=== PATIENT | female | born 1945 | race Caucasian/White ===

== ENCOUNTER 2018-05-28 00:57 | Day surgery (SDC) | payer MEDICARE, OTHER ==
[~2018-05-28] VITALS: Ht 162.6 cm; Wt 90.0 kg
[~2018-05-28 00:57] MED LIST: ALBU90OI6 INH; ASPI81CH PO; ASPI81EC PO; CELE200 PO; Caffeine200 MG PO; ESTROGEN CREAM; HYDCHL25 PO; HYDMOR2 PO; Isosorbide Mono60 MG PO; LEVSOD100 PO; LEVSOD125 PO; LOSA25 PO; MELO7.5 PO; METO25 PO; MONT10T PO; NEBI5 PO; OMEP20ER PO; Prempro 0.3 MG/1 TAB PO; RANI150 PO; SIMV10 PO; SUCR1 PO; TAMS.4ER PO; VENL75ER PO
== END 2018-05-28 11:15 | disposition home or self-care (01) ==
LOC: MHTC 00:57
DX: R07.9 Chest pain, unspecified (principal); R06.02 Shortness of breath; E66.9 Obesity, unspecified; E78.00 Pure hypercholesterolemia, unspecified; E78.5 Hyperlipidemia, unspecified; I10 Essential (primary) hypertension; E03.9 Hypothyroidism, unspecified; K21.9 Gastro-esophageal reflux disease without esophagitis; Z79.82 Long term (current) use of aspirin; Z79.899 Other long term (current) drug therapy; Z82.49 Family history of ischemic heart disease and other diseases of the circulatory system; Z68.34 Body mass index [BMI] 34.0-34.9, adult
CPT/HCPCS: 93458; 99152; 99153; C1769; C1894; J1644; J2250; J3010; J7030; Q9967

== ENCOUNTER 2019-01-28 09:23 | Day surgery (SDC) | payer MEDICARE, OTHER ==
[~2019-01-28] VITALS: Ht 162.6 cm; Wt 88.0 kg
[2019-01-28] MEDS ORDERED: Budeprion Xl300 MG PO (10:44)
[2019-01-28] MEDS ORDERED: FURO40 PO (10:45)
[2019-01-28] MEDS ORDERED: ESTR2 PO (10:45)
[2019-01-28] MEDS ORDERED: MELO7.5 PO (10:45)
[2019-01-28] MEDS ORDERED: BUSP15 PO (10:45)
--- NOTE | 2019-01-28 11:12 | NUR ---
Ambulatory in Day Surgery History, Chart, Medications and Allergies reviewed before start of procedure.Lungs clear T/O to Auscultation. Patient confirms NPO status and agrees with scheduled surgery. Pre-Op teaching done. Pt verbalizes understanding. Patient States Post-Procedure ride home has been arranged.
--- NOTE | 2019-01-28 11:13 | NUR ---
PT CALM AND PLEASANT. CALL LIGHT GIVEN TO PT. RIDE WILL BE CALLED AFTER PROCEDURE.
--- NOTE | 2019-01-28 11:16 | NUR ---
PT LEFT HEARING AID REMOVED PLACED IN LABELED CUP WITH BELONGINGS
--- NOTE | 2019-01-28 11:19 | NUR ---
01/28/19 1119 [place] Phillip Bite Block Placed3-LEAD EKG REVIEWED WITH PHYSICIAN PRIOR TO START OF PROCEDURE.Patient to ENDO 1History, Chart, Medications and Allergies reviewed before start of procedure.MONITOR INTACT WITH CONTINUOUS PULSE OXIMETRY AND INTERMITTENT BP.O2 VIA N/C INTACT THROUGHOUT SEDATION/PROCEDURE.HURRICAINE SPRAY TO OROPHARYX.
--- NOTE | 2019-01-28 12:30 | NUR ---
Patient up to Ambulate independently. Gait steady. Discharge instructions reviewed with patient. Patient verbalizes understanding. Copy given to patient to take home. Patient States Post-Procedure ride home has been arranged. Discharged via wheelchair to private car for ride home.
== END 2019-01-28 22:44 | disposition home or self-care (01) ==
LOC: ORSCMMR 09:23 → ORD 10:30 → ORSCMMR 22:44
PROVIDERS: Internal Medicine Gastroenterology
PROC: 0DB98ZX Excision of Duodenum, Via Natural or Artificial Opening Endoscopic, Diagnostic (ICD-10-PCS; principal; 2019-01-28 10:30)
PROC: 0DB68ZX Excision of Stomach, Via Natural or Artificial Opening Endoscopic, Diagnostic (ICD-10-PCS; principal; 2019-01-28 10:30)
PROC: 0DB48ZX Excision of Esophagogastric Junction, Via Natural or Artificial Opening Endoscopic, Diagnostic (ICD-10-PCS; principal; 2019-01-28 10:30)
DX: K22.70 Barrett's esophagus without dysplasia (principal); R93.89 Abnormal findings on diagnostic imaging of other specified body structures; K21.0 Gastro-esophageal reflux disease with esophagitis; R10.13 Epigastric pain; I10 Essential (primary) hypertension; E03.9 Hypothyroidism, unspecified; G47.30 Sleep apnea, unspecified; F41.8 Other specified anxiety disorders; K44.9 Diaphragmatic hernia without obstruction or gangrene; Z79.899 Other long term (current) drug therapy
CPT/HCPCS: 88305; 88342; J2250; J3010; J7120

== ENCOUNTER 2019-05-04 06:44 | Day surgery (SDC) | payer MEDICARE, OTHER ==
[~2019-05-04] VITALS: Ht 162.6 cm; Wt 87.9 kg
[~2019-05-04 06:44] MED LIST changes: +BUSP15 PO; +Budeprion Xl300 MG PO; +ESOMEPRAZOLE MA40 MG PO; +ESTR2 PO; +EUTHYROX112 MCG PO; +Estradiol1 MG PO; +FURO40 PO; +K-Dur20 MEQ PO; +Ranitidine HCl300 MG PO; +TRAM50 PO
== END 2019-05-04 12:10 | disposition home or self-care (01) ==
LOC: ORSCSDS 06:44
PROVIDERS: Orthopaedic Surgery
PROC: 0RNJ4ZZ Release Right Shoulder Joint, Percutaneous Endoscopic Approach (ICD-10-PCS; principal; 2019-05-04 08:30)
PROC: 0RBJ4ZZ Excision of Right Shoulder Joint, Percutaneous Endoscopic Approach (ICD-10-PCS; principal; 2019-05-04 08:30)
PROC: 0LQ14ZZ Repair Right Shoulder Tendon, Percutaneous Endoscopic Approach (ICD-10-PCS; principal; 2019-05-04 08:30)
DX: S46.101A Unspecified injury of muscle, fascia and tendon of long head of biceps, right arm, initial encounter (principal); M25.811 Other specified joint disorders, right shoulder; S46.101D Unspecified injury of muscle, fascia and tendon of long head of biceps, right arm, subsequent encounter; M75.41 Impingement syndrome of right shoulder; I10 Essential (primary) hypertension; E03.9 Hypothyroidism, unspecified; Z79.899 Other long term (current) drug therapy
CPT/HCPCS: 84132; C1713; J0171; J2250; J2370; J2405; J2704; J2710; J2765; J2795; J3010; J7120